=== PATIENT | female | born 2000 | race American Indian/Alaskan Native ===

== ENCOUNTER 2020-07-24 02:17 | Emergency (ER) | payer OTHER, MEDICAID ==
[2020-07-24] MEDS ORDERED: Ketorolac 60 MG/2 ML SDV IM ONE (02:48)
[2020-07-24] MEDS ORDERED: Cyclobenzaprine 10 MG Tab PO ONE (02:49)
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
== END 2020-07-24 05:07 | disposition home or self-care (01) ==
LOC: FB.ED 02:17
DX: M62.830 Muscle spasm of back (principal); Z79.899 Other long term (current) drug therapy; V48.6XXA Car passenger injured in noncollision transport accident in traffic accident, initial encounter
CPT/HCPCS: 72072; 72100; 81025; 96372; 99284; A9270; J1885

== ENCOUNTER 2020-08-22 01:23 | Observation (INO) | payer MEDICAID ==
[2020-08-22] MEDS ORDERED: Activated Charcoal/Water Susp 50 GM/240 ML Tube ONE (01:34)
[2020-08-22] MEDS ORDERED: Lactated Ringers 1,000 ML IV ONE (01:44)
[2020-08-22] MEDS ORDERED: Activated Charcoal/Water Susp 50 GM/240 ML Tube PO ONE (01:48)
--- NOTE | 2020-08-22 02:09 | EDM.PDOC ---
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 No other ingestions were reported. Does report feeling somewhat sleepy now. No hx of OD in the past. PMN is unremarkable. Is uncertain about status. No elaboration here about her motive for the ingestion. Reportedly has been having discussions with a friend about suicide plans. Drinking more heavily than normal recently. Onset: Sudden Onset Date: 08/21/20 Duration: Hour(s): (~2), Getting Worse (just beginning to feel symptoms of her OD) Location: Reports: Generalized Quality: Reports: Other (pain is not reported) Severity: Mild (currently with regards to her sx's) Improves with: Reports: None Worsens with: Reports: Other (time) Context: Reports: Other (See HPI) Associated Symptoms: Reports: Other (sleepy) Treatments HEEL STAINER: Reports: Other (see below) (none) - Related Data Allergies Allergy/AdvReac Type Severity Reaction Status Date / Time No Known Allergies Allergy Verified 07/24/20 02:45 Home Meds: Home Meds Levonorgestrel/Ethin.estradiol [Falmina-28 Tablet] 1 tab PO DAILY 08/22/20 [History] Social & Family History - Caffeine Use Caffeine Use: Reports: Soda ED ROS GENERAL - Review of Systems Review Of Systems: See Below Constitutional: Reports: Other (sleepy, mildly) HEENT: Reports: No Symptoms Respiratory: Reports: No Symptoms Cardiovascular: Reports: No Symptoms GI/Abdominal: Reports: No Symptoms : Reports: No Symptoms Musculoskeletal: Reports: No Symptoms Skin: Reports: No Symptoms Neurological: Reports: No Symptoms Psychiatric: Reports: Depression, Suicidal Ideation (won't admit to this, not fully cooperative) ED EXAM, GENERAL - Physical Exam Exam: See Below Exam Limited By: No Limitations General Appearance: Alert, WD/WN, No Apparent Distress Eye Exam: Bilateral Eye: Normal Inspection Ears: Normal External Exam, Normal Canal, Hearing Grossly Normal Ear Exam: Bilateral Ear: Auricle Normal, Canal Normal Nose: Normal Inspection, No Blood Throat/Mouth: Normal Inspection, Normal Lips, Normal Oropharynx, Normal Voice, No Airway Compromise Head: Atraumatic, Normocephalic Neck: Normal Inspection Respiratory/Chest: No Respiratory Distress, Lungs Clear, Normal Breath Sounds, No Accessory Muscle Use Cardiovascular: Regular Rate, Rhythm, No Edema GI/Abdominal: Normal Bowel Sounds, Soft, Non-Tender, No Distention Back Exam: Normal Inspection. No: CVA Tenderness (R), CVA Tenderness (L) Extremities: Normal Inspection, Normal Range of Motion, Non-Tender, No Pedal Edema Neurological: Alert, Oriented, CN II-XII Intact, Normal Cognition, No Motor/Sensory Deficits Psychiatric: Flat Affect. No: Tearful Skin Exam: Warm, Dry, Intact, Normal Color, No Rash #1 Interpretation EKG Date: 08/22/20 Time: 02:20 Rhythm: NSR Rate (Beats/Min): 110 [place]: Normal P-Wave: Present QRS: Normal ST-T: Normal QT: Normal Comparison: NA - No Prior EKG #2 Interpretation EKG Date: 08/22/20 Time: 04:00 Rhythm: NSR Rate (Beats/Min): 132 [place]: Normal P-Wave: Present QRS: Normal ST-T: Normal QT: Normal Comparison: Change From Previous EKG (Rate has increased.) Course - Vital Signs Last Recorded V/S: Last Vital Signs Temp 36.6 C 08/22/20 01:23 Pulse 62 08/22/20 20:00 Resp 16 08/22/20 20:00 BP 118/71 08/22/20 20:00 Pulse Ox 100 08/22/20 20:00 - Orders/Labs/Meds Orders: Active Orders 24 hr Category Date Time Status Cardiac Monitoring [RC] .As Directed Care 08/22/20 01:53 Active EKG Documentation Completion [RC] ASDIRECTED Care 08/22/20 01:43 Active EKG Documentation Completion [RC] ASDIRECTED Care 08/22/20 03:50 Active Calderón Catheter Insertion [Insert Urinary Catheter] [OM. Care 08/22/20 02:30 Ordered PC] Q24H Remove-Discontinue Violent/Self-Destructive Restraints Care 08/22/20 11:20 Ordered ONETIME Urinary Catheter Assessment [RC] QSHIFT Care 08/22/20 02:29 Active THYROXINE (T4) FREE, DIRECT, S Stat Lab 08/22/20 01:45 Received EKG 12 Lead [EK] Routine Ther 08/22/20 01:43 Ordered EKG 12 Lead [EK] Routine Ther 08/22/20 03:50 Ordered Medication Orders Acetaminophen (Tylenol) 650 mg PO Q4H PRN PRN Reason: Pain (Mild 1-3)/fever Sodium Chloride (Normal Saline) 1,000 mls @ 75 mls/hr IV ASDIRECTED [facility] Last Admin: 08/22/20 16:12 Dose: 75 mls/hr Documented by: LIGIA Ondansetron HCl (Zofran Odt) 4 mg PO Q4H PRN PRN Reason: nausea, able to take PO Labs: Laboratory Tests 08/22/20 08/22/20 08/22/20 Range/Units 01:54 01:54 01:54 WBC 7.0 (4.5-12.0) X10-3/uL RBC 4.51 (3.23-5.20) x10(6)uL Hgb 13.0 (11.5-15.5) g/dL Hct 39.7 (30.0-51.3) % MCV 88.0 (80-96) fL MCH 28.8 (27.7-33.6) pg MCHC 32.7 (32.2-35.4) g/dL RDW 14.1 (11.5-15.5) % Plt Count 302 (125-369) X10(3)uL Sodium (135-145) mmol/L Potassium (3.5-5.3) mmol/L Chloride (100-110) mmol/L Carbon Dioxide (21-32) mmol/L BUN (7-18) mg/dL Creatinine (0.55-1.02) mg/dL Est Cr Clr Drug Dosing Estimated GFR (MDRD) (>60) BUN/Creatinine Ratio (9-20) Glucose (80-116) mg/dL Calcium (8.6-10.2) mg/dL Total Bilirubin (0.1-1.3) mg/dL AST (5-25) IU/L ALT (12-36) U/L Alkaline Phosphatase (56-112) IU/L Total Protein (6.0-8.0) g/dL Albumin (3.5-5.2) g/dL Globulin g/dL Albumin/Globulin Ratio TSH, Ultra Sensitive (0.36-3.74) IU/mL Urine Color (YELLOW) Urine Appearance (CLEAR) Urine pH (5.0-6.5) Ur Specific Blaine (1.010-1.025) Urine Protein (NEGATIVE) mg/dL Urine Glucose (UA) (NORMAL) mg/dL Urine Ketones (NEGATIVE) mg/dL Urine Occult Blood (NEGATIVE) Urine Nitrite (NEGATIVE) Urine Bilirubin (NEGATIVE) Urine Urobilinogen (NEGATIVE) mg/dL Ur Leukocyte Esterase (NEGATIVE) Urine RBC (0-5) Urine WBC (0-5) Ur Squamous Epith Cells (NS,R,O) Urine Bacteria (NS) Urine HCG, Qual (NEGATIVE) Urine Opiates Screen (NEGATIVE) Ur Oxycodone Screen (NEGATIVE) Ur Propoxyphene Screen (NEGATIVE) Acetaminophen < 2 L (<2) ug/mL Ur Barbituates Screen (NEGATIVE) Ur Tricyclics Screen (NEGATIVE) Ur Phencyclidine Scrn (NEGATIVE) Ur Amphetamine Screen (NEGATIVE) Urine MDMA Screen (NEGATIVE) U Benzodiazepines Scrn (NEGATIVE) U Cocaine Metab Screen (NEGATIVE) U Marijuana (THC) Screen (NEGATIVE) Ethyl Alcohol 0.16 H* (<0.03) % SARS-CoV-2 RNA (CANDIDA) (NEGATIVE) 08/22/20 08/22/20 08/22/20 Range/Units 01:54 01:54 01:55 WBC (4.5-12.0) X10-3/uL RBC (3.23-5.20) x10(6)uL Hgb (11.5-15.5) g/dL Hct (30.0-51.3) % MCV (80-96) fL MCH (27.7-33.6) pg MCHC (32.2-35.4) g/dL RDW (11.5-15.5) % Plt Count (125-369) X10(3)uL Sodium 143 (135-145) mmol/L Potassium 3.6 (3.5-5.3) mmol/L Chloride 104 (100-110) mmol/L Carbon Dioxide 28 (21-32) mmol/L BUN 9 (7-18) mg/dL Creatinine 0.8 (0.55-1.02) mg/dL Est Cr Clr Drug Dosing TNP Estimated GFR (MDRD) > 60 (>60) BUN/Creatinine Ratio 11.3 (9-20) Glucose 100 (80-116) mg/dL Calcium 9.0 (8.6-10.2) mg/dL Total Bilirubin 0.3 (0.1-1.3) mg/dL AST 13 (5-25) IU/L ALT 17 (12-36) U/L Alkaline Phosphatase 78 (56-112) IU/L Total Protein 7.7 (6.0-8.0) g/dL Albumin 4.1 (3.5-5.2) g/dL Globulin 3.6 g/dL Albumin/Globulin Ratio 1.1 TSH, Ultra Sensitive 4.49 H (0.36-3.74) IU/mL Urine Color (YELLOW) Urine Appearance (CLEAR) Urine pH (5.0-6.5) Ur Specific Blaine (1.010-1.025) Urine Protein (NEGATIVE) mg/dL Urine Glucose (UA) (NORMAL) mg/dL Urine Ketones (NEGATIVE) mg/dL Urine Occult Blood (NEGATIVE) Urine Nitrite (NEGATIVE) Urine Bilirubin (NEGATIVE) Urine Urobilinogen (NEGATIVE) mg/dL Ur Leukocyte Esterase (NEGATIVE) Urine RBC (0-5) Urine WBC (0-5) Ur Squamous Epith Cells (NS,R,O) Urine Bacteria (NS) Urine HCG, Qual (NEGATIVE) Urine Opiates Screen Negative (NEGATIVE) Ur Oxycodone Screen Negative (NEGATIVE) Ur Propoxyphene Screen Negative (NEGATIVE) Acetaminophen (<2) ug/mL Ur Barbituates Screen Negative (NEGATIVE) Ur Tricyclics Screen Negative (NEGATIVE) Ur Phencyclidine Scrn Negative (NEGATIVE) Ur Amphetamine Screen Negative (NEGATIVE) Urine MDMA Screen Negative (NEGATIVE) U Benzodiazepines Scrn Negative (NEGATIVE) U Cocaine Metab Screen Negative (NEGATIVE) U Marijuana (THC) Screen Negative (NEGATIVE) Ethyl Alcohol (<0.03) % SARS-CoV-2 RNA (CANDIDA) (NEGATIVE) 08/22/20 08/22/20 08/22/20 Range/Units 01:55 01:55 04:56 WBC (4.5-12.0) X10-3/uL RBC (3.23-5.20) x10(6)uL Hgb (11.5-15.5) g/dL Hct (30.0-51.3) % MCV (80-96) fL MCH (27.7-33.6) pg MCHC (32.2-35.4) g/dL RDW (11.5-15.5) % Plt Count (125-369) X10(3)uL Sodium (135-145) mmol/L Potassium (3.5-5.3) mmol/L Chloride (100-110) mmol/L Carbon Dioxide (21-32) mmol/L BUN (7-18) mg/dL Creatinine (0.55-1.02) mg/dL Est Cr Clr Drug Dosing Estimated GFR (MDRD) (>60) BUN/Creatinine Ratio (9-20) Glucose (80-116) mg/dL Calcium (8.6-10.2) mg/dL Total Bilirubin (0.1-1.3) mg/dL AST (5-25) IU/L ALT (12-36) U/L Alkaline Phosphatase (56-112) IU/L Total Protein (6.0-8.0) g/dL Albumin (3.5-5.2) g/dL Globulin g/dL Albumin/Globulin Ratio TSH, Ultra Sensitive (0.36-3.74) IU/mL Urine Color Yellow (YELLOW) Urine Appearance Slightly cloudy (CLEAR) Urine pH 7.0 H (5.0-6.5) Ur Specific Blaine 1.005 L (1.010-1.025) Urine Protein Negative (NEGATIVE) mg/dL Urine Glucose (UA) Normal (NORMAL) mg/dL Urine Ketones Negative (NEGATIVE) mg/dL Urine Occult Blood Negative (NEGATIVE) Urine Nitrite Negative (NEGATIVE) Urine Bilirubin Negative (NEGATIVE) Urine Urobilinogen Normal (NEGATIVE) mg/dL Ur Leukocyte Esterase Negative (NEGATIVE) Urine RBC 0-5 (0-5) Urine WBC 0-5 (0-5) Ur Squamous Epith Cells Moderate H (NS,R,O) Urine Bacteria Few H (NS) Urine HCG, Qual Negative (NEGATIVE) Urine Opiates Screen (NEGATIVE) Ur Oxycodone Screen (NEGATIVE) Ur Propoxyphene Screen (NEGATIVE) Acetaminophen (<2) ug/mL Ur Barbituates Screen (NEGATIVE) Ur Tricyclics Screen (NEGATIVE) Ur Phencyclidine Scrn (NEGATIVE) Ur Amphetamine Screen (NEGATIVE) Urine MDMA Screen (NEGATIVE) U Benzodiazepines Scrn (NEGATIVE) U Cocaine Metab Screen (NEGATIVE) U Marijuana (THC) Screen (NEGATIVE) Ethyl Alcohol (<0.03) % SARS-CoV-2 RNA (CANDIDA) Positive H (NEGATIVE) Meds: Medications Generic Name Dose Route Start Last Admin Trade Name Freq PRN Reason Stop Dose Admin Acetaminophen 650 mg 08/22/20 16:00 Tylenol PO Q4H PRN Pain (Mild 1-3)/fever Sodium Chloride 1,000 mls @ 75 mls/hr 08/22/20 16:00 08/22/20 16:12 Normal Saline IV 75 mls/hr ASDIRECTED YAYO Administration Ondansetron HCl 4 mg 08/22/20 16:00 Zofran Odt PO Q4H PRN nausea, able to take PO Discontinued Medications Generic Name Dose Route Start Last Admin Trade Name Freq PRN Reason Stop Dose Admin Charcoal Confirm 08/22/20 01:34 08/22/20 02:06 Actidose-Aqua Administered 08/22/20 01:35 Not Given Dose 50 gm .ROUTE .STK-MED ONE Charcoal 50 gm 08/22/20 01:48 08/22/20 01:40 Actidose-Aqua PO 08/22/20 01:49 50 gm ONETIME ONE Administration Lactated Ringer's 1,000 mls @ 1,000 mls/hr 08/22/20 01:44 08/22/20 02:06 Ringers, Lactated IV 08/22/20 02:43 1,000 mls/hr BOLUS ONE Administration Lactated Ringer's 1,000 mls @ 250 mls/hr 08/22/20 03:30 08/22/20 03:28 Ringers, Lactated IV 250 mls/hr ASDIRECTED YAYO Administration Lorazepam 1 mg 08/22/20 02:50 08/22/20 02:55 Ativan IVPUSH 08/22/20 02:51 1 mg ONETIME ONE Administration Lorazepam Confirm 08/22/20 02:52 08/22/20 03:29 Ativan Administered 08/22/20 02:53 Not Given Dose 2 mg .ROUTE .STK-MED ONE Lorazepam 1 mg 08/22/20 04:39 08/22/20 04:44 Ativan IVPUSH 08/22/20 04:40 1 mg ONETIME ONE Administration Lorazepam 0.5 mg 08/22/20 05:52 08/22/20 06:00 Ativan IVPUSH 08/22/20 05:53 0.5 mg ONETIME ONE Administration Departure - Departure Time of Disposition: 16:00 Disposition: Admitted As Inpatient 66 Condition: Serious Clinical Impression: Suicidal ideation, COVID-19 Alcohol intoxication Qualifiers: Complication of substance-induced condition: with unspecified complication Q ualified Code(s): F10.929 - Alcohol use, unspecified with intoxication, unspecified Drug overdose, intentional Qualifiers: Encounter type: initial encounter Qualified Code(s): T50.902A - Poisoning by unspecified drugs, medicaments and biological substances, intentional self-harm, initial encounter - Discharge Information *PRESCRIPTION DRUG MONITORING PROGRAM REVIEWED*: No *COPY OF PRESCRIPTION DRUG MONITORING REPORT IN PATIENT NAOMI: No Sepsis Event Note (ED) - Evaluation Sepsis Screening Result: No Definite Risk - My Orders Last 24 Hours: My Active Orders 08/22/20 01:43 EKG Documentation Completion [RC] ASDIRECTED EKG 12 Lead [EK] Routine 08/22/20 01:53 Cardiac Monitoring [RC] .As Directed 08/22/20 02:29 Urinary Catheter Assessment [RC] QSHIFT 08/22/20 02:30 Calderón Catheter Insertion [Insert Urinary Catheter] [OM.PC] Q24H 08/22/20 03:50 EKG Documentation Completion [RC] ASDIRECTED EKG 12 Lead [EK] Routine - Assessment/Plan Last 24 Hours: My Active Orders 08/22/20 01:43 EKG Documentation Completion [RC] ASDIRECTED EKG 12 Lead [EK] Routine 08/22/20 01:53 Cardiac Monitoring [RC] .As Directed 08/22/20 02:29 Urinary Catheter Assessment [RC] QSHIFT 08/22/20 02:30 Calderón Catheter Insertion [Insert Urinary Catheter] [OM.PC] Q24H 08/22/20 03:50 EKG Documentation Completion [RC] ASDIRECTED EKG 12 Lead [EK] Routine
[2020-08-22] MEDS ORDERED: LORazepam 2 MG/ML SDV IVPUSH ONE ×3 (02:50→05:52)
[2020-08-22] MEDS ORDERED: LORazepam 2 MG/ML SDV ONE (02:52)
[2020-08-22] MEDS ORDERED: Lactated Ringers 1,000 ML IV SCH (03:30)
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
[2020-08-22] MEDS ORDERED: Acetaminophen 325 MG Tab PO PRN (16:00)
[2020-08-22] MEDS ORDERED: Ondansetron 4 MG Tab.DIS PO PRN (16:00)
[2020-08-22] MEDS: Sodium Chloride 0.9% 1,000 ML IV SCH (16:12)
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
[2020-08-23] MEDS: Sodium Chloride 0.9% 1,000 ML IV SCH (05:27)
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
--- NOTE | 2020-08-23 12:36 | CR ---
INDICATION: Right hand contusion, pain lateral side. RIGHT HAND: Three views of the right hand were obtained 08/23/20 - no comparison. A fracture, dislocation, or other significant bone or joint abnormality was not identified. If symptoms persist, if occult fracture site is suspected clinically, reexamination in 10-14 days may be helpful. MTDD
[2020-08-24 11:14] LABS: DIASORIN SARS COV-2 IGG AB Positive (Negative)
[2020-08-25 15:12] LABS: SARS COV-2 IGM AB Negative (Negative)
== END 2020-08-23 11:55 | disposition home or self-care (01) ==
LOC: EDUNIT# → FB.ED 01:23 → FB.OB 13:30
PROVIDERS: ADMIT Emergency Medicine; ATTEND Family Medicine
DX: T48.1X2A Poisoning by skeletal muscle relaxants [neuromuscular blocking agents], intentional self-harm, initial encounter (principal); U07.1 COVID-19; F10.929 Alcohol use, unspecified with intoxication, unspecified; Z79.899 Other long term (current) drug therapy; F17.210 Nicotine dependence, cigarettes, uncomplicated; Y90.0 Blood alcohol level of less than 20 mg/100 ml
CPT/HCPCS: 36415; 51702; 73130-RT; 80053; 80305-QW; 80307; 81001; 81025; 84439; 84443; 85027; 86769; 93005; 96361; 96374; 96376; 99285-25; G0378; J2060; J7030; J7120; U0002